=== PATIENT | male | born 1960 | race Caucasian/White ===

== ENCOUNTER 2016-08-21 12:28 | Emergency (ER) | payer OTHER ==
[~2016-08-21] VITALS: Ht 188 cm; Wt 79.4 kg
[2016-08-21 12:28] VITALS: BP 140/88
[2016-08-21] MEDS ORDERED: FLEXERIL PO (13:03)
[2016-08-21] MEDS ORDERED: MEDROLDOSEPACK PO (13:03)
[2016-08-21] MEDS ORDERED: MOBIC15 MG PO (13:03)
== END 2016-08-21 13:23 | disposition home or self-care (01) ==
LOC: ER 12:28
DX: M54.42 Lumbago with sciatica, left side (principal); Z88.1 Allergy status to other antibiotic agents; Z88.5 Allergy status to narcotic agent; Z88.0 Allergy status to penicillin; F17.210 Nicotine dependence, cigarettes, uncomplicated; F10.99 Alcohol use, unspecified with unspecified alcohol-induced disorder; F12.10 Cannabis abuse, uncomplicated

== ENCOUNTER → 2017-09-13 | Outpatient (CLI) | payer OTHER ==
[~2017-09-13] MED LIST: FLEXERIL PO; MEDROLDOSEPACK PO; MOBIC15 MG PO
== END ==
LOC: ULTRA 14:38
DX: R59.9 Enlarged lymph nodes, unspecified (principal)

== ENCOUNTER → 2020-10-10 | Outpatient (CLI) | payer OTHER | LOC: CAT 13:58 | PROVIDERS: ATTEND Nurse Practitioner | DX: J43.9 Emphysema, unspecified (principal); Z12.2 Encounter for screening for malignant neoplasm of respiratory organs; Z87.891 Personal history of nicotine dependence ==